=== PATIENT | male | born 2000 | race Two or more races ===

== ENCOUNTER 2024-07-29 00:54 | Emergency (ER) | payer SELFPAY ==
[~2024-07-29] VITALS: Ht 177.8 cm; Wt 110.0 kg
[2024-07-29 00:54] VITALS: BP 0/0; PULSE 0; TEMP 99.4; O2SAT 0
[2024-07-29] MEDS ORDERED: SODIUM BICARB 8.4% 50Meq/50ml SYR INJ IV ONE (00:55)
[2024-07-29] MEDS ORDERED: NALOXONE HCL 1MG/ML 2ML SYRINGE ONE (01:00)
--- NOTE | 2024-07-29 01:21 | RESUS ---
CODE BLUE ASSESSSMENT History of Events History of Events: Pt BIBA with CPR in progress via ABDULKADIR. Per EMS, pt was found on the floor by family. Bystander CPR initiated by on scene. IO initiated to L proximal tibia by EMS with Epi x4 given. Pt in PEA throughout transport. Total downtime 30 mins by arrival to ER. BLS airway d/t blood and vomit in airway. Initial Information Date: July 29, 2024 Time: 00:53 Location of Arrest: In Field Arrest Witnessed: No CPR started initial time: 00:33 CPR started by whom: Bystander () Pre-Hospital Care: ACLS Type of arrest: Cardiac, Respiratory, Adult, Unwitnessed Spontaneous Respirations: No Pulse Present: No Monitoring: ECG, Pulse Oximetry, Telemetry Crash Cart Opened and Supplies: Yes Airway Ventilation Oxygen Delivery Method: Ambu-Bag Time of first Assisted Ventila: 00:53 Artificial Ventilation: Bag/Mask Comments: Pt not intubated during code; maintained BLS airway Circulation Circulation #1: Time: 00:55 Pulse Rate (adult): 0 Blood Pressure Systolic: 0 Blood Pressure Diastolic: 0 Temperature (Fahrenheit): 99.4 (F; rectal) Circulation #2: Time: 00:57 Pulse Rate (adult): 0 Blood Pressure Systolic: 0 Blood Pressure Diastolic: 0 Circulation Comment: PEA Circulation #3: Time: 00:59 Pulse Rate (adult): 0 Blood Pressure Systolic: 0 Blood Pressure Diastolic: 0 Circulation Comment: PEA Circulation #4: Time: 01:01 Pulse Rate (adult): 0 Blood Pressure Systolic: 0 Blood Pressure Diastolic: 0 Circulation Comment: PEA Circulation #5: Time: 01:03 Pulse Rate (adult): 0 Blood Pressure Systolic: 0 Blood Pressure Diastolic: 0 Circulation Comment: PEA Circulation #6: Time: 01:04 Pulse Rate (adult): 0 Blood Pressure Systolic: 0 Blood Pressure Diastolic: 0 Circulation Comment: TOD; no pulse activity verified by ultrasound by Dr Harper Medications & Response Medications and Responses #1: Medication Time: 00:55 ADULT Medications Given ADULT: Epinephrine 1 mg Route of Administration: IO Heart Rate: 0 EKG Rhythm: PEA Blood Pressure Systolic: 0 Blood Pressure Diastolic: 0 Respiratory Rate: 0 EKG Rhythm: PEA Medications and Responses #2: Medication Time: 00:56 ADULT Medications Given ADULT: Calcium Chloride 10 mL Route of Administration: IO Heart Rate: 0 EKG Rhythm: PEA Blood Pressure Systolic: 0 Blood Pressure Diastolic: 0 Respiratory Rate: 0 O2 Sat by Pulse Oximetry: 0 EKG Rhythm: PEA Medications and Responses #3: Medication Time: 00:57 ADULT Medications Given ADULT: Sodium Bacarbinate 50 meq Route of Administration: IO Heart Rate: 0 EKG Rhythm: PEA Blood Pressure Systolic: 0 Blood Pressure Diastolic: 0 Respiratory Rate: 0 EKG Rhythm: PEA Medications and Responses #4: Medication Time: 00:58 ADULT Medications Given ADULT: D50 (amp) Route of Administration: IO Heart Rate: 0 EKG Rhythm: PEA Blood Pressure Systolic: 0 Blood Pressure Diastolic: 0 Respiratory Rate: 0 EKG Rhythm: PEA Medications and Responses #5: Medication Time: 00:59 ADULT Medications Given ADULT: Epinephrine 1 mg, Magnesium Sulfate 2 gm Route of Administration: IO Heart Rate: 0 EKG Rhythm: PEA Blood Pressure Systolic: 0 Blood Pressure Diastolic: 0 Respiratory Rate: 0 EKG Rhythm: PEA Medications and Responses #6: Medication Time: 01:00 ADULT Medications Given ADULT: Narcan 1 mg (4mg) Medication Comment: 4mg of Narcan given Heart Rate: 0 EKG Rhythm: PEA Blood Pressure Systolic: 0 Blood Pressure Diastolic: 0 Respiratory Rate: 0 EKG Rhythm: PEA Medications and Responses #7: Medication Time: 01:02 ADULT Medications Given ADULT: Epinephrine 1 mg Route of Administration: IO Heart Rate: 0 EKG Rhythm: PEA Blood Pressure Systolic: 0 Blood Pressure Diastolic: 0 Respiratory Rate: 0 EKG Rhythm: PEA Nurses Notes Karen Coma Scale Eye Opening: None (1) Park Coma Scale Verbal: None (1) Karen Coma Scale Motor: None (1) Glascow Total: 3 Pupil Reaction: Non Reactive Bedside Blood Glucose: 142 Time Code Ended Time Code Ended: 01:04 Post Arrest Status: Outcome of code: Unsuccessful Patient pronounced by: Dr Harper Time patient pronounced: 01:04 Family notified: Yes Code Team Present: Dr Harper; Juanito Azul RN - ER Charge; Mackenzie Dan RN - Accountant Manager; Marci Miles RT; Frank Wong RN; Shelly Welsh RN; Kandy Bnigham, RN; Layo Wong, ERT; Madeleine Alvarez, Mackenzie Marinelli July 29, 2024 01:21
[2024-07-29 01:23] VITALS: RESP 16
--- NOTE | 2024-07-29 01:28 | ED.PDOC ---
CPR-HPI HPI Comments 23-year-old male who came to ER via EMS per cardiopulmonary arrest. Per EMS, picked up at a [facility], where he was having some alcohol, and witnesses saw him collapse to the ground, Unsure if he took any prohibited drugs. Paramedics were on scene within 10 minutes, patient is seen unresponsive, agonal breathing, PEA. CPR initiated immediately, intubation attempted but unsuccessful so continuos bagging was done, chest compression, IO fluids at left leg and epinephrine x 4 doses was given prior to arrival to the ER. Patient is still unresponsive and pulseless upon arrival Chief Complaint: CPR Time Seen by MD: 01:00 Reviewed Notes: Deputy City Clerk Notes Allergies: Coded Allergies: NO KNOWN ALLERGIES (Unverified , 07/29/24) Information Source: Emergency Med Personnel Mode of Arrival: EMS Timing: Minutes Duration: Down time prior EMS: (10 minutes), Total time prior hopital: (30 minutes) Onset: Witnessed Available Hx: Other (ETOH) Inital rhythm: PEA Treatment: CPR, IV Response: No response Past Medical History PAST MEDICAL HISTORY: Unobtainable Surgical History: Unobtainable Family History Family History: Unobtainable Social History Smoker: Unobtainable Alcohol: Unobtainable Drugs: Unobtainable Lives In: Unobtainable Unable to Obtain due to: Medical Urgency Physical Exam General Appearance: Severe Distress, Other (Ongoing cardiac arrest) HEENT: Pharynx Normal, TMs Normal, Other (Pupils unresponsive, fixed dilated) Neck: Full Range of Motion, Non-Tender, Normal, Normal Inspection Respiratory: Chest Non-Tender, No Accessory Muscle Use, Other (No spontaneous breathing) Cardiovascular: No Edema, No JVD, No Murmur, No Gallop, Other (No pulses) Breast Exam: Deferred Gastrointestinal: No Organomegaly, Non Tender, No Pulsatile Mass, Normal Bowel Sounds, Soft Genitalia: Deferred Pelvic: Deferred Rectal: Deferred Extremities: No calf tenderness, Normal capillary refill, Normal inspection, Normal range of motion, Non-tender, No pedal edema Musculoskeletal : Apperance: Normal Neurologic: Other (Unresponsive) Cerebellar Function: Unable to Test Reflexes: None Skin: Dry, Mottled Lymphatic: No Adenopathy Was a procedure done? Was a procedure done?: No Differential Dx CPR Differential Diagnosis: Cardiopulmonary arrest, Dysrhythmia, Respiratory Failure, Other (Overdose) X-Ray, Labs, Meds, VS Vital Signs Date Time Temp Pulse Resp B/P (MAP) Pulse Ox O2 Delivery O2 Flow Rate FiO2 07/29/24 01:23 16 Mechanical Ventilator+ 100 100 07/29/24 01:21 0 0 Ambu-Bag 0 07/29/24 00:54 99.4 0 0 0/0 (0) 0 99.4 Time of 1ST Reevaluation: 01:00 Reevaluation 1ST: Unchanged Patient Education/Counseling: Pt Unresponsive Family Education/Counseling: No Family Present Critical Care Note Critical Care Time?: No Heart Score Heart Score: Heart Score Response (Comments) Value History N/A 0 EKG N/A 0 Age N/A 0 Risk Factors N/A 0 Troponin N/A 0 Total 0 Stability Stability form required: No I personally scribed for KOLE MASON MD ([email or web address]) on 07/29/24 at 01:28. Electronically submitted by Viet Low ([employer]). I personally scribed for KOLE MASON MD ([email or web address]) on 07/29/24 at 01:31. Electronically submitted by Viet Low ([employer]). I personally scribed for KOLE MASON MD ([email or web address]) on 07/29/24 at 01:34. Electronically submitted by Viet Low ([facility]Spot[facility]). KOLE MASON MD July 29, 2024 01:28
== END 2024-07-29 01:04 ==
LOC: EDBD 00:54 → ER 00:54
DX: I46.9 Cardiac arrest, cause unspecified (principal)
CPT/HCPCS: 92950; 99285; J0171; J2310; J3475; J7042